=== PATIENT | male | born 1965 | race African-American/Black ===

== ENCOUNTER 2023-01-23 15:22 | Emergency (ER) | payer BC, OTHER ==
[~2023-01-23] VITALS: Ht 182.9 cm; Wt 99.4 kg
[2023-01-23 15:35] VITALS: BP 132/89
[2023-01-23] MEDS ORDERED: KETOROLAC TROMETH 60MG/2ML VIAL IM ONE (15:45)
[2023-01-23 18:55] LABS: Urine Bacteria NONE SEEN /hpf (None Seen); Urine Blood Negative /uL (Negative); Urine Specific Gravity 1.019 (1.001-1.035); Urine WBC <1 /hpf (0 - 3)
[2023-01-23] MEDS ORDERED: IBUP800T26 PO (19:12)
== END 2023-01-23 21:01 | disposition home or self-care (01) ==
LOC: ER 15:22
DX: S46.912A Strain of unspecified muscle, fascia and tendon at shoulder and upper arm level, left arm, initial encounter (principal); M75.102 Unspecified rotator cuff tear or rupture of left shoulder, not specified as traumatic; F17.210 Nicotine dependence, cigarettes, uncomplicated; Z88.0 Allergy status to penicillin; X58.XXXA Exposure to other specified factors, initial encounter; Y93.89 Activity, other specified; Y92.89 Other specified places as the place of occurrence of the external cause; Y99.8 Other external cause status
CPT/HCPCS: 71046; 73030; 81001; 96372; 99284; J1885